=== PATIENT | female | born 1995 ===

== ENCOUNTER 2018-07-14 00:55 | Emergency (ER) | payer OTHER ==
[2018-07-14 00:56] VITALS: BMI 32.8
[2018-07-14 01:09] VITALS: BP 122/70; PULSE 77; RESP 17; TEMP 98.5; O2SAT 98
[2018-07-14] MEDS ORDERED: Silver Sulfadiazine 1% CREAM (50 gm) ONE (01:40)
[2018-07-14] MEDS ORDERED: Acetaminophen-Codeine 300/30 mg Tab PO ONE (01:41)
--- NOTE | 2018-07-14 01:44 | ED PDOC ---
Burn Injury/Smoke Inhalation Time Seen by Provider: 07/14/18 01:30 Chief Complaint (Nursing): Burn Chief Complaint (Provider): right arm burn History Per: Patient History/Exam Limitations: no limitations Injury Occurred (Timing): Hours Ago: (2) Type Of Burn (Context): Hot Liquid Additional Complaint(s): 23 y/o female presents for evaluation of right arm burn x 2 hours. 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 Patient states co-workers cracked an egg on her arm and wrapped it. Admits to pain/burning sensation to arm. Denies numbness/weakness right upper extremity, limitation of movement. Tetanus up to date. Past Medical History Reviewed: Historical Data, Nursing Documentation, Vital Signs Vital Signs: Last Vital Signs Temp 98.5 F 07/14/18 01:03 Pulse 77 07/14/18 01:03 Resp 17 07/14/18 01:03 BP 122/70 07/14/18 01:03 Pulse Ox 98 07/14/18 01:03 - Medical History PMH: Asthma - Surgical History Surgical History: No Surg Hx - Family History Family History: States: Unknown Family Hx - Living Arrangements Living Arrangements: With Family - Home Medications Home Medications: Ambulatory Orders Medication Instructions Recorded Ciprofloxacin/Ciprofloxa HCl 500 mg PO Q12 #14 tab 04/21/16 [Ciprofloxacin] Nitrofurantoin Macrocrystals 100 mg PO BID #14 cap 04/30/16 [Macrobid] Acetaminophen with Codeine 1 tab PO Q6 PRN #10 tab 07/14/18 [Tylenol with Codeine No. 3 300 mg-30 mg] Ibuprofen [Motrin Tab] 1 tab PO Q6 PRN #15 tab 07/14/18 Silver Sulfadiazine 1% 50 gm 1 applic TOP BID #1 jar 07/14/18 [Silvadene 1% 50 gm] - Allergies Allergies/Adverse Reactions: Allergies Allergy/AdvReac Type Severity Reaction Status Date / Time No Known Allergies Allergy Verified 02/25/15 17:29 Review of Systems ROS Statement: Except As Marked, All Systems Reviewed And Found Negative Musculoskeletal: Positive for: Arm Pain (right) Physical Exam - Reviewed Nursing Documentation Reviewed: Yes Vital Signs Reviewed: Yes - Physical Exam Appears: Positive for: Well, Non-toxic, No Acute Distress Pulses-Radial (L): 2+ Pulses-Radial (R): 2+ Extremity: Positive for: Normal ROM, Other (wrap forearm in dressing; FROM, digits exposed. Distal NV/motor intact) Neurologic/Psych: Positive for: Alert, Oriented (x3) - ECG O2 Sat by Pulse Oximetry: 98 - Progress ED Course And Treament: Tylenol #3, wound care Arm irrigated with 250mL NS to remove egg particles: erythema and tenderness noted dorsal-lateral and ventral aspects right forearm (from elbow to wrist), and dorsal/palmar aspects right hand extending to distal 3rd and 4th digits. FROM. Distal NV/motor intact. No blisters noted. Silvadene and bandages applied to affected areas PAtient educated on findings, discharged with rx Tylenol #3, ibuprofen, Silvadene Advised follow up wound care clinic Return precautions given Disposition - Clinical Impression Clinical Impression: Burn of right upper extremity - Patient ED Disposition Is Patient to be Admitted: No Counseled Patient/Family Regarding: Studies Performed, Diagnosis, Need For F ollowup, Rx Given - Disposition Referrals: [facility] [Outside] [facility] [place] Disposition: Routine/Home Disposition Time: 02:40 Condition: IMPROVED Prescriptions: Acetaminophen with Codeine [Tylenol with Codeine No. 3 300 mg-30 mg] 1 tab PO Q6 PRN #10 tab PRN Reason: Pain, Severe (8-10) Ibuprofen [Motrin Tab] 1 tab PO Q6 PRN #15 tab PRN Reason: Pain, Moderate (4-7) Silver Sulfadiazine 1% 50 gm [Silvadene 1% 50 gm] 1 applic TOP BID #1 jar Instructions: Skin Daniel Forms: [facility] (Malagasy), [facility] ED School/Work Excuse
[2018-07-14] MEDS ORDERED: Acetaminophen-Codeine 300/30 mg Tab ONE (01:56)
== END 2018-07-14 02:55 | disposition home or self-care (01) ==
LOC: H.ER 00:55
DX: T22.011A Burn of unspecified degree of right forearm, initial encounter (principal); X11.8XXA Contact with other hot tap-water, initial encounter; Y99.0 Civilian activity done for income or pay

== ENCOUNTER 2019-01-31 00:23 | Emergency (ER) | payer SELFPAY ==
[2019-01-31 00:23] VITALS: BMI 32.8
--- NOTE | 2019-01-31 00:52 | ED PDOC ---
HPI: General Adult Time Seen by Provider: 01/31/19 00:49 Chief Complaint (Nursing): Back Pain Chief Complaint (Provider): neck pain History Per: Patient (23 y/o female here for evaluation of left sided neck pain noted after turning head suddenly at work. Did not take any medications after. Denies any fall injury. Feels she heard a 'crack.' in neck.) Past Medical History Reviewed: Historical Data, Nursing Documentation, Vital Signs Vital Signs: Last Vital Signs Temp 98.5 F 01/31/19 00:26 Pulse 68 01/31/19 00:26 Resp 16 01/31/19 00:26 BP 122/69 01/31/19 00:26 Pulse Ox 99 01/31/19 00:26 - Medical History PMH: Asthma - Family History Family History: States: Unknown Family Hx - Home Medications Home Medications: Ambulatory Orders Medication Instructions Recorded Ciprofloxacin/Ciprofloxa HCl 500 mg PO Q12 #14 tab 04/21/16 [Ciprofloxacin] Nitrofurantoin Macrocrystals 100 mg PO BID #14 cap 04/30/16 [Macrobid] Acetaminophen with Codeine 1 tab PO Q6 PRN #10 tab 07/14/18 [Tylenol with Codeine No. 3 300 mg-30 mg] Ibuprofen [Motrin Tab] 1 tab PO Q6 PRN #15 tab 07/14/18 Silver Sulfadiazine 1% 50 gm 1 applic TOP BID #1 jar 07/14/18 [Silvadene 1% 50 gm] Ibuprofen [Motrin] 600 mg PO Q8 PRN #21 tab 01/31/19 - Allergies Allergies/Adverse Reactions: Allergies Allergy/AdvReac Type Severity Reaction Status Date / Time No Known Allergies Allergy Verified 01/31/19 00:26 Review of Systems ROS Statement: Except As Marked, All Systems Reviewed And Found Negative Physical Exam - Reviewed Nursing Documentation Reviewed: Yes Vital Signs Reviewed: Yes - Physical Exam Appears: Positive for: Well, Non-toxic, No Acute Distress Head Exam: Positive for: ATRAUMATIC, NORMAL INSPECTION, NORMOCEPHALIC Skin: Positive for: Normal Color, Warm, DRY Eye Exam: Positive for: EOMI, Normal appearance, PERRL ENT: Positive for: Normal ENT Inspection Neck: Positive for: Painless ROM. Negative for: Normal (left paracervical /lateral neck tenderness. No specific bony tenderness.) Cardiovascular/Chest: Positive for: Regular Rate, Rhythm Respiratory: Positive for: CNT, Normal Breath Sounds Gastrointestinal/Abdominal: Positive for: Normal Exam, Soft Back: Positive for: Normal Inspection Extremity: Positive for: Normal ROM Neurological/Psych: Positive for: Awake, Alert, Normal Tone - ECG O2 Sat by Pulse Oximetry: 99 - Progress ED Course And Treament: TORADOL 30 MG IM X 1 DOSE Disposition - Clinical Impression Clinical Impression: Neck muscle strain - Patient ED Disposition Is Patient to be Admitted: No - Disposition Referrals: [facility] [Outside] Disposition: Routine/Home Disposition Time: 00:51 Condition: FAIR Prescriptions: Ibuprofen [Motrin] 600 mg PO Q8 PRN #21 tab PRN Reason: Pain, Moderate (4-7) Instructions: Muscle Strain (DC), Neck Sprain (DC)
[2019-01-31 02:56] VITALS: BP 124/70; PULSE 82; RESP 18; TEMP 98.4
[2019-02-01 03:04] VITALS: O2SAT 99
== END 2019-01-31 02:20 | disposition home or self-care (01) ==
LOC: H.ER 00:23
DX: S16.1XXA Strain of muscle, fascia and tendon at neck level, initial encounter (principal); J45.909 Unspecified asthma, uncomplicated
CPT/HCPCS: 81025; 96372; 99283; J1885